=== PATIENT | female | born 1970 | race Caucasian/White ===

== ENCOUNTER → 2022-05-19 13:44 | Outpatient (BNVA) | payer SELFPAY | PROVIDERS: PCP Family Medicine; Visit Provider Nurse Practitioner Family | DX: R39.9 Unspecified symptoms and signs involving the genitourinary system (principal); R35.0 Frequency of micturition; R30.0 Dysuria; N30.00 Acute cystitis without hematuria | CPT/HCPCS: 81000; 81003; 87086 ==